=== PATIENT | male | born 1950 | race Caucasian/White ===

== ENCOUNTER 2024-03-04 14:45 | Emergency (ER) | payer OTHER ==
[~2024-03-04] VITALS: Ht 180.3 cm; Wt 70.4 kg
[2024-03-04 16:11] LABS: Basophils # (auto) 0.1 10 ^3/uL (0-0.2); Basophils % (auto) 1.2 % (0.0-2.0); Eosinophils # (auto) 0.1 10 ^3/uL (0-0.8); Eosinophils % (auto) 0.7 % (0.0-7.0); Hematocrit 37.6 % (41.0-53.0); Lymphocytes # (auto) 2.3 10 ^3/uL (0.4-5.4); Lymphocytes % (auto) 28.3 % (10.0-50.0); Mean Corpuscular Hemoglobin 33.2 pg (28.0-32.0); Mean Corpuscular Hgb Conc. 34.6 g/dL (32.0-36.0); Mean Corpuscular Volume 95.9 fL (80.0-100.0); Monocytes # (auto) 0.9 10 ^3/uL (0-1.3); Monocytes % (auto) 10.4 % (0.0-12.0); Neutrophils # (auto) 4.9 10 ^3/uL (1.6-8.6); Neutrophils % (auto) 59.4 % (37.0-80.0); Platelet Count (auto) 197 10^3/uL (140-450); Red Blood Cells 3.91 10^6/uL (4.5-5.90); Red Cell Distribution Width 13.6 % (11.8-14.3); White Blood Cell 8.2 10^3/uL (4.4-10.8)
[2024-03-04] MEDS: HYDROcodone-ACET 5/325MG TAB PO ONE (16:22)
[2024-03-04 16:46] LABS: Alanine Aminotransferase 31 U/L (7-40); Albumin 4.8 g/dL (3.2-4.8); Alkaline Phosphatase 107 U/L (46-116); Anion Gap 7 (5-15); Aspartate Aminotransferase 19 U/L (13-40); BUN/Creatinine Ratio 9.7 (10.0-20.0); Bilirubin, Total 0.8 mg/dL (0.2-1.0); Blood Urea Nitrogen 7 mg/dL (9-23); Calcium 9.5 mg/dL (8.7-10.4); Carbon Dioxide 25 mmol/L (20-30); Chloride 104 mmol/L (98-107); Glucose 88 mg/dL (74-106); Sodium 136 mmol/L (136-145); Total Protein 7.4 g/dL (5.7-8.2)
[2024-03-04 17:46] LABS: Urine Bacteria None Seen /hpf (None Seen)
[2024-03-04 18:00] LABS: Urine Blood Negative /uL (Negative); Urine Clarity Clear (Clear); Urine Color Light-Yellow (Yellow); Urine Protein, UAD Negative (Negative); Urine Urobilinogen Normal (Negative); Urine WBC 1 /hpf (0 - 3); Urine pH 5.5 (5.0-9.0)
[2024-03-04] MEDS ORDERED: HYDR-4902 PO (18:33)
[2024-03-04 18:45] VITALS: BP 113/62; PULSE 75; RESP 16; TEMP 98.2; O2SAT 96
== END 2024-03-04 18:53 | disposition home or self-care (01) ==
LOC: ER 14:45
DX: S30.1XXA Contusion of abdominal wall, initial encounter (principal); I10 Essential (primary) hypertension; I25.2 Old myocardial infarction; F17.210 Nicotine dependence, cigarettes, uncomplicated; X58.XXXA Exposure to other specified factors, initial encounter; Y93.89 Activity, other specified; Y92.89 Other specified places as the place of occurrence of the external cause; Y99.8 Other external cause status
CPT/HCPCS: 36415; 74176; 80053; 81001; 85025

== ENCOUNTER 2024-06-28 12:53 | Emergency (ER) | payer OTHER ==
[~2024-06-28] VITALS: Ht 180.3 cm; Wt 70.9 kg
[~2024-06-28 12:53] MED LIST: HYDR-4902 PO
--- NOTE | 2024-06-28 13:13 | ECG ---
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
--- NOTE | 2024-06-28 13:46 | ED.PDOC ---
HPI Comments 73 y.o male with PMH of HTN, OH, CVA, chronic neck pain, and hepatitis C, presents to the ED for a chief complaint of substernal chest pain associated with SOB that started one week ago. Patient describes pain as a sharp and burning sensation, states it is constant non radiating, and has no modifying factors. Patient denies any nausea, vomiting, fever, chills, leg swelling, back pain. He admits to tobacco, occasional alcohol and marijuana use. Chief Complaint: Shortness of Breath Time Seen by MD: 13:33 Primary Care Provider: FARRAH Reviewed Notes: Nurses Notes, Medications, Allergies Allergies: Coded Allergies: NO KNOWN ALLERGIES (Unverified , 03/04/24) Home Meds Active Scripts Hydrocodone-Acetaminophen (Hydrocodone Bitartrate/AC 5-325 mg) 1 Tab Tab, 1 TAB PO Q6HPRN PRN, #10 TAB Prov:FELIPE ULRICH PAC 03/04/24 Information Source: Patient Mode of Arrival: Wheelchair Severity: Moderate Timing: Weeks (1) Duration: Since onset Location: Substernal Radiation: No Radiation Quality: Sharp Onset: At Rest Cardiac Risk Factors: Smoker, HTN PE Risk Factors: None History of: OH Modifying Factors: Nothing Associated Signs and Symptoms: SOB Past Medical History PAST MEDICAL HISTORY: CVA, HTN, [place], Seizures Past Medical History (Other): chronic neck pain, HEP C Surgical History: PTCA Surgical History (Other): neck, right foot Family History Family History: Reviewed,noncontributory to illness Social History Smoker: Cigarettes Alcohol: Occasionally Drugs: Marijuana Lives In: Home Constitutional: denies: chills, diaphoresis, fatigue, fever, malaise, sweats, weakness, others EENTM: denies: blurred vision, double vision, ear bleeding, ear discharge, ear drainage, ear pain, ear ringing, eye pain, eye redness, hearing loss, mouth pain, mouth swelling, nasal discharge, nose bleeding, nose congestion, nose pain, photophobia, tearing, throat pain, throat swelling, voice changes, others Respiratory: reports: SOB at rest, shortness of breath; denies: cough, hemoptysis, orthopnea, SOB with excertion, stridor, wheezing, others Cardiovascular: reports: chest pain; denies: dizzy spells, diaphoresis, Dyspnea on exertion, edema, irregular heart beat, left arm pain, lightheadedness, palpitations, PND, syncope, others Gastrointestinal: denies: abdomen distended, abdominal pain, blood streaked bowels, constipated, diarrhea, dysphagia, difficulty swallowing, hematemesis, melena, nausea, poor appetite, poor fluid intake, rectal bleeding, rectal pain, vomiting, others Genitourinary: denies: burning, dysuria, flank pain, frequency, hematuria, incontinence, penile discharge, penile sore, pain, testicle pain, testicle swelling, urgency, others Neurological: denies: dizziness, fainting, headache, left sided numbness, left sided weakness, numbness, paresthesia, pre-existing deficit, right sided numbness, right sided weakness, seizure, speech problems, tingling, tremors, weakness, others Musculoskeletal: denies: back pain, gout, joint pain, joint swelling, muscle pain, muscle stiffness, neck pain, others Integumetry: denies: bruises, change in color, change in hair/nails, dryness, laceration, lesions, lumps, rash, wounds, others Allergic/Immunocompromised: denies: Difficulty Healing, Frequent Infections, Hives, Itching, others Hematologic/Lymphatic: denies: anemia, blood clots, easy bleeding, easy bruising, swollen glands, others Psychiatric: denies: anxiety, bipolar disorder, depression, hopeless, panic disorder, schizophrenia, sleepless, suicidal, others All Other Systems: Reviewed and Negative Physical Exam General Appearance: Mild Distress HEENT: Normal ENT Inspection, Pharynx Normal, TMs Normal Neck: Full Range of Motion, Non-Tender, Normal, Normal Inspection Respiratory: Chest Non-Tender, Lungs Clear, No Accessory Muscle Use, No Respiratory Distress, Normal Breath Sounds Cardiovascular: No Edema, No JVD, No Murmur, No Gallop, Normal Peripheral Pulses, Regular Rate/Rhythm Breast Exam: Deferred Gastrointestinal: No Organomegaly, Non Tender, No Pulsatile Mass, Normal Bowel Sounds, Soft Genitalia: Deferred Pelvic: Deferred Rectal: Deferred Extremities: No calf tenderness, Normal capillary refill, Normal inspection, Normal range of motion, Non-tender, No pedal edema Musculoskeletal : Apperance: Normal Neurologic: Alert, oncology physician II-XII nml as Tested, No Motor Deficits, Normal Affect, Normal Mood, No Sensory Deficits Cerebellar Function: Normal Reflexes: Normal Skin: Dry, Normal Color, Warm Lymphatic: No Adenopathy EKG EKG : Pulse Rate (adult): 91 [place]: Normal Cardiac Rhythm: NSR Block: None Was a procedure done? Was a procedure done?: No CP Differential Dx Differential Diagnosis: Angina Differential Diagnosis: Chest Wall Pain, Costochondritis, Myocardial Infarction, Pericarditis X-Ray, Labs, Meds, VS Vital Signs Date Time Temp Pulse Resp B/P (MAP) Pulse Ox O2 Delivery O2 Flow Rate FiO2 06/28/24 13:46 91 06/28/24 13:09 91 06/28/24 13:08 99.1 99 18 147/72 (97) 96 Lab Test 06/28/24 15:10 06/28/24 13:51 Range/Units Troponin I High Sensitivity 10 10 </=54 ng/L White Blood Count 7.2 4.4-10.8 10^3/uL Red Blood Count 4.29 L 4.5-5.90 10^6/uL Hemoglobin 13.9 13.5-17.5 g/dL Hematocrit 39.7 L 41.0-53.0 % Mean Corpuscular Volume 92.5 80.0-100.0 fL Mean Corpuscular Hemoglobin 32.5 H 28.0-32.0 pg Mean Corpuscular Hemoglobin Concent 35.1 32.0-36.0 g/dL Red Cell Distribution Width 14.5 H 11.8-14.3 % Platelet Count 197 140-450 10^3/uL Mean Platelet Volume 7.9 6.9-10.8 fL Neutrophils (%) (Auto) 75.2 37.0-80.0 % Lymphocytes (%) (Auto) 13.1 10.0-50.0 % Monocytes (%) (Auto) 11.2 0.0-12.0 % Eosinophils (%) (Auto) 0.0 0.0-7.0 % Basophils (%) (Auto) 0.5 0.0-2.0 % Neutrophils # (Auto) 5.4 1.6-8.6 10 ^3/uL Lymphocytes # (Auto) 0.9 0.4-5.4 10 ^3/uL Monocytes # (Auto) 0.8 0-1.3 10 ^3/uL Eosinophils # (Auto) 0 0-0.8 10 ^3/uL Basophils # (Auto) 0 0-0.2 10 ^3/uL Nucleated Red Blood Cells 0.0 % Sodium Level 125 L 136-145 mmol/L Potassium Level 4.0 3.5-5.1 mmol/L Chloride Level 92 L 98-107 mmol/L Carbon Dioxide Level 27 20-31 mmol/L Anion Gap 6 5-15 Blood Urea Nitrogen < 5 L 9-23 mg/dL Creatinine 0.78 0.700-1.30 mg/dL Glomerular Filtration Rate Calc 93 >90 mL/min BUN/Creatinine Ratio 6.4 L 10.0-20.0 Serum Glucose 100 74-106 mg/dL Calcium Level 9.8 8.7-10.4 mg/dL B-Type Natriuretic Peptide 147.93 0-100 pg/mL Current Medications Medications (Trade) Dose Ordered Sig/Steffi Route Start Time Stop Time Status Last Admin Aspirin 162 mg ONCE ONCE PO 06/28/24 13:45 06/28/24 13:46 DC 06/28/24 14:10 Images Reviewed?: Images reviewed and evaluated by me Time of 1ST Reevaluation: 13:39 Reevaluation 1ST: Unchanged Patient Education/Counseling: Diagnosis, Treatment, Prognosis Family Education/Counseling: Diagnosis, Treatment, Prognosis Critical Care Note Critical Care Time?: No Stability Stability form required: No Heart Score Heart Score: Heart Score Response (Comments) Value History Moderate Suspicious 1 Age >65 2 Risk Factors >3 or Hx ASHD 2 Total 5 I personally scribed for MICHAEL QUINTANA MD ([email or web address]) on 06/28/24 at 13:46. Electronically submitted by Tiffany Murillo ([facility]). MICHAEL QUINTANA MD Jun 28, 2024 13:46
[2024-06-28] MEDS: ASPirin 81 mg TAB PO ONE (13:55)
[2024-06-28 14:03] LABS: Basophils # (auto) 0 10 ^3/uL (0-0.2); Basophils % (auto) 0.5 % (0.0-2.0); Eosinophils # (auto) 0 10 ^3/uL (0-0.8); Hematocrit 39.7 % (41.0-53.0); Hemoglobin 13.9 g/dL (13.5-17.5); Lymphocytes # (auto) 0.9 10 ^3/uL (0.4-5.4); Lymphocytes % (auto) 13.1 % (10.0-50.0); Mean Corpuscular Hemoglobin 32.5 pg (28.0-32.0); Mean Corpuscular Hgb Conc. 35.1 g/dL (32.0-36.0); Mean Corpuscular Volume 92.5 fL (80.0-100.0); Monocytes # (auto) 0.8 10 ^3/uL (0-1.3); Monocytes % (auto) 11.2 % (0.0-12.0); Neutrophils # (auto) 5.4 10 ^3/uL (1.6-8.6); Neutrophils % (auto) 75.2 % (37.0-80.0); Platelet Count (auto) 197 10^3/uL (140-450); Red Blood Cells 4.29 10^6/uL (4.5-5.90); Red Cell Distribution Width 14.5 % (11.8-14.3); White Blood Cell 7.2 10^3/uL (4.4-10.8)
[2024-06-28 14:19] LABS: Anion Gap 6 (5-15); Calcium 9.8 mg/dL (8.7-10.4); Carbon Dioxide 27 mmol/L (20-31)
[2024-06-28 14:20] LABS: Chloride 92 mmol/L (98-107); Sodium 125 mmol/L (136-145)
[2024-06-28 14:24] LABS: Glucose 100 mg/dL (74-106)
[2024-06-28 14:27] LABS: BUN/Creatinine Ratio 6.4 (10.0-20.0); Blood Urea Nitrogen < 5 mg/dL (9-23)
--- NOTE | 2024-06-28 14:45 | DVH ---
XY CHEST TWO VIEWS ROUTINE, HISTORY: CP COMPARISON: None None TECHNICAL DATA: 2 view of the chest was obtained. FINDINGS: Lines and tubes: None Cardiomediastinal silhouette: normal Pulmonary vasculature: normal Lung expansion: normal Lung airspace: normal Lung interstitium: normal Pleura: normal Pneumothorax: no Bones: Unremarkable Other: no IMPRESSION: No acute intrathoracic abnormality.
[2024-06-28] MEDS ORDERED: OMEP-434 PO (16:19)
[2024-06-28] MEDS ORDERED: AZIT500T PO (16:19)
[2024-06-28] MEDS: AZITHROMYCIN 250 MG TAB PO ONE (16:30)
--- NOTE | 2024-06-28 16:38 | DVHDS2 ---
New Physician D'charge PN Admitting Diagnosis Admitting Diagnosis cp Discharge Diagnosis URI atypical chest pain Operations or Procedures none Reason(s) For Hospitalization Surgery Hospital Course 73 M who comes to ER c/o of CP with associated cough. He has a hx of CAD with PCI x1 to the LAD 2 years ago and according to him he had another angiogram done recently last year in which the stent was patent with no other obstructive lesions. On arrival to the ER he was hemodynamically stable and remained on room air with sats greater than 90%. His troponin enzymes x2 were negative. His CP is now alleviated and he was given aspirin PO x1. He still complains of cough however his CXR revealed no acute abnormality. He already sees cardiology outpt and currently is on brilinta and coreg. 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 Spoke to the patient and he understands and agrees to plan of care, Instructed to return to ER or call 911 should his symptoms worsen. Treatment Plan Discharge Condition of Discharge Good Disposition Home Discharge Instructions Diet: Cardiac 2g Na,low cholest Activity: No Restrictions, As Tolerated Medications: see med sheet Follow Up Care Follow Up/Referral: pcp cardiology Discharge Statement: "Patient was advised to return to the ER or call 911 if any headaches, dizziness, shortness of breath, chest pain, abdominal pain, bleeding, fevers, or worsening of medical condition. Patient was counseled about treatment plan, medications, possible side effects, patientverbalized understanding. All questions were answered to the best of my ability. This discharge took greater then 30 minutes in planning, reviewing documentation, counseling the patient, and discussing with other team members." TRUNG FIORE MD Jun 28, 2024 16:38
[2024-06-28 18:42] VITALS: BP 141/72; PULSE 93; RESP 18; TEMP 99; O2SAT 95
== END 2024-06-28 18:48 | disposition home or self-care (01) ==
LOC: ER 12:58
DX: R07.89 Other chest pain (principal); R06.02 Shortness of breath; I10 Essential (primary) hypertension; I25.10 Atherosclerotic heart disease of native coronary artery without angina pectoris; F17.210 Nicotine dependence, cigarettes, uncomplicated; I25.2 Old myocardial infarction; Z79.02 Long term (current) use of antithrombotics/antiplatelets; Z86.19 Personal history of other infectious and parasitic diseases; Z86.73 Personal history of transient ischemic attack (TIA), and cerebral infarction without residual deficits; Z95.5 Presence of coronary angioplasty implant and graft
CPT/HCPCS: 36415; 71046; 80048; 83880; 84484; 85025; 93005